=== PATIENT | male | born 1965 | race Caucasian/White ===

== ENCOUNTER 2016-10-17 09:34 | Emergency (ER) | payer OTHER ==
[~2016-10-17] VITALS: Ht 180.3 cm; Wt 85.9 kg
[2016-10-17 09:40] VITALS: BP 122/79; TEMP 98.5
[2016-10-17] MEDS ORDERED: PROAIR HFA0.09 MG/AC IH (09:43)
[2016-10-17] MEDS ORDERED: CEPHALEXIN500 M1 PO (11:37)
[2016-10-17] MEDS ORDERED: NORCO 325 MG-51 TAB PO (11:40)
[2016-10-17 11:56] VITALS: PULSE 89
== END 2016-10-17 11:57 | disposition home or self-care (01) ==
LOC: COL.ER 09:34
DX: S61.112A Laceration without foreign body of left thumb with damage to nail, initial encounter (principal); W22.8XXA Striking against or struck by other objects, initial encounter; Z23 Encounter for immunization

== ENCOUNTER 2017-11-15 23:08 | Emergency (ER) | payer OTHER ==
[~2017-11-15] VITALS: Ht 177.8 cm; Wt 86.4 kg
[~2017-11-15 23:08] MED LIST: CEPHALEXIN500 M1 PO; NORCO 325 MG-51 TAB PO; PROAIR HFA0.09 MG/AC IH
[2017-11-15 23:19] VITALS: BP 137/83; TEMP 97.8
[2017-11-16 00:01] LABS: BASO # 0.1 (0.0-0.2); BASO % 0.6 % (0.0-2.0); EOS # 0.3 (0.0-0.7); EOS % 2.3 % (0-4.0); GRAN # 6.7 (1.4-6.5); GRAN % 61.2 % (42.2-75.2); HEMATOCRIT 40.4 % (42.0-52.0); HEMOGLOBIN 13.7 g/dl (13.5-18.0); LYMPH % 27.1 % (20.0-51.0); MEAN CELL VOLUME 97 fl (80.0-100.0); MEAN CORPUSCULAR HEMOGLOBIN 33 pg (27.0-31.0); MEAN CORPUSCULAR HGB CONC 34 g/dl (33.0-37.0); MEAN PLATELET VOLUME 9.5 fl (7.4-10.4); MONO # 0.9 (0.1-0.6); MONO % 8.6 % (1.7-9.3); PLATELET COUNT 302 K/mm3 (130-400); RED BLOOD COUNT 4.18 M/mm3 (4.20-5.60); REDCELL DISTRIBUTION WIDTH-CV 12.4 % (11.5-14.5)
[2017-11-16 00:13] LABS: ALANINE AMINOTRANSFERASE 37 U/L (21-72); ALBUMIN 4.3 gm/dL (3.5-5.0); ALKALINE PHOSPHATASE 65 U/L (50-136); ANION GAP 14 mmol/L (7-16); AST,SGOT 29 U/L (15-37); BILIRUBIN,TOTAL 0.4 mg/dL (0.0-1.0); BLOOD UREA NITROGEN 16 mg/dL (9-20); C-REACTIVE PROTEIN 0.6 mg/dL (0.0-0.9); CALCIUM 9.8 mg/dL (8.4-10.2); CARBON DIOXIDE 26 mmol/L (22-30); CHLORIDE 99 mmol/L (98-107); CREATININE, serum 1.12 mg/dL (0.66-1.25); GLUCOSE 98 mg/dL (74-106); POTASSIUM 4.5 mmol/L (3.4-5.0); SODIUM 140 mmol/L (137-145); TOTAL PROTEIN 8.4 gm/dL (6.4-8.2)
[2017-11-16 00:21] LABS: TROPONIN-I < 0.012 ng/mL (0.000-0.034)
[2017-11-16] MEDS ORDERED: PREDNISONE20 MG PO (01:02)
[2017-11-16] MEDS ORDERED: COMBIRESP IH (01:02)
[2017-11-16 01:16] VITALS: PULSE 110
== END 2017-11-16 01:15 | disposition home or self-care (01) ==
LOC: COL.ER 23:08
PROVIDERS: Emergency Medicine
DX: J45.901 Unspecified asthma with (acute) exacerbation (principal); M10.9 Gout, unspecified; F17.200 Nicotine dependence, unspecified, uncomplicated
CPT/HCPCS: J2930; J3105; J3475; J7030

== ENCOUNTER 2020-03-30 06:44 | Day surgery (SDC) | payer OTHER ==
[~2020-03-30] VITALS: Ht 177.8 cm; Wt 87.7 kg
[~2020-03-30 06:44] MED LIST changes: +COMBIRESP IH; +PREDNISONE20 MG PO
[2020-03-30] MEDS ORDERED: ANORO IH (07:09)
[2020-03-30] MEDS ORDERED: PROVENTIL0.09 MG/A1 IH (07:10)
[2020-03-30] MEDS ORDERED: CHANTIX 1MG1 MG PO (07:10)
[2020-03-30 07:18] VITALS: BP 112/77; PULSE 93; TEMP 98.3
[2020-03-30 08:20] VITALS: BP 114/82; PULSE 92; TEMP 97.8
--- NOTE | 2020-03-30 08:20 | NUR ---
Patient arrives to [facility] via cart, accompanied by Raquel RN. He is alert and oriented. He ambulates with steady gait and standby assist to the chair in his room. Monitoring is applied -VSS and WNL on room air. He denies pain or nausea. He is offered food/drink and receives apple juice. Will continue to monitor.
[2020-03-30 08:35] VITALS: BP 106/55; PULSE 86
--- NOTE | 2020-03-30 08:35 | NUR ---
VSS and WNL on room air. He denies pain or nausea. He drank his juice - tolerated well.
[2020-03-30 08:50] VITALS: BP 110/75; PULSE 89
--- NOTE | 2020-03-30 08:50 | NUR ---
Dr. Rutledge is at the bedside and speaks with the patient at this time.
--- NOTE | 2020-03-30 09:00 | NUR ---
Patient has met discharge criteria. Discharge instructions are discussed. He denies any questions and verbalizes understanding. PIV is removed with catheter intact and hemostasis achieved. He is calling his ride and changing to his clothing independently.
[2020-03-30 09:01] VITALS: BP 126/90; PULSE 96
--- NOTE | 2020-03-30 09:06 | NUR ---
Patient is escorted to the exit via wheelchair by staff. He is discharged to home with ride in private vehicle at [id number].
== END 2020-03-30 09:06 | disposition home or self-care (01) ==
LOC: SDCO
DX: Z12.11 Encounter for screening for malignant neoplasm of colon (principal); D12.2 Benign neoplasm of ascending colon; D12.3 Benign neoplasm of transverse colon; J44.9 Chronic obstructive pulmonary disease, unspecified; R01.1 Cardiac murmur, unspecified; F17.210 Nicotine dependence, cigarettes, uncomplicated; G89.29 Other chronic pain; G43.909 Migraine, unspecified, not intractable, without status migrainosus; Z79.899 Other long term (current) drug therapy; Z20.828 Contact with and (suspected) exposure to other viral communicable diseases
CPT/HCPCS: J2704; J7030

== ENCOUNTER → 2021-12-31 | Outpatient (CLI) | payer OTHER ==
[~2021-12-31] MED LIST changes: +ANORO IH; +CHANTIX 1MG1 MG PO; +PROVENTIL0.09 MG/A1 IH
== END ==
LOC: ZCOL.LAB 17:43
DX: Z20.822 Contact with and (suspected) exposure to COVID-19 (principal)